=== PATIENT | male | born 1970 | race Caucasian/White ===

== ENCOUNTER 2016-11-08 09:41 | Emergency (ER) | payer OTHER ==
--- NOTE | 2016-11-08 10:18 | ED CLINICAL REPORT ---
Clinical Report - Physicians/Mid Levels [facility] [address] [place] [address] 11/08/2016 9:44 Patient: ASHLEY ABDI Time Seen: 09:57; initial patient contact. Arrived- By private vehicle. Historian- patient. HISTORY OF PRESENT ILLNESS Chief Complaint: SKIN RASH. This started about 2 months ago and is still present and worsening. It is described as itchy and burning. It has been located on the right and left abdomen (and groin). No cause has been identified. No recent medication or insect bite. Was not recently exposed to poison bc or poison oak. (Has attempted OTC jock itch Tx's w/out relief). Similar symptoms previously: None. Recent medical care: Not recently seen/assessed. REVIEW OF SYSTEMS No fever, chills or genital lesions. All systems otherwise negative, except as recorded above. PAST HISTORY ADD - Attention Deficit Disorder. Arthritis of the upper spine. Bipolar Disorder. Depression. Anxiety Reaction. ADDITIONAL SURGERIES: Hernia Repair. SOCIAL HISTORY Former smoker. Occasional alcohol use. No drug use. ADDITIONAL NOTES The nursing notes have been reviewed with agreement regarding the chief complaint, PMH and patient medications and allergies. PHYSICAL EXAM Vital Signs: 11/08/2016 10:00 BP: 110/73. HR: 89. RR: 18. O2 saturation: 100%. Temp: 98.0 F. Have been reviewed as normal. Appearance: Alert. Oriented X3. No acute distress. Skin: Rash present on the right and left abdomen (inguinal area). The rash is erythematous and maculopapular. Neuro: Oriented X 3. PROGRESS AND PROCEDURES Disposition: Discharged home in good condition. Condition: good. CLINICAL IMPRESSION Tinea cruris INSTRUCTIONS Your Current Medications: CONTINUE TAKING THE FOLLOWING MEDICATIONS: Adderall Oral : 30 mg 2x a day. LamoTRIgine Oral : 200mg daily. [place] Oral : 300mg 3x daily. Naproxen Oral. Prazosin HCl Oral : 2mg 2x a day. Pristiq Oral : 50mg 2x daily. SEROquel Oral : 200mg 2x a day. Prescription Medications: Nystatin Topical Cream: three times daily as needed for itching or rash until symptoms resolve. Dispense thirty (30) grams. No refills. Follow-up: Screening today revealed the patient's blood pressure to be in the normal range. Follow-up with: [facility], , , [address], , [place], [address] Follow up in about five if not better. Call for an appointment. (Electronically signed by Rustam Maxwell Dr. 11/08/2016 10:23)
--- NOTE | 2016-11-08 10:18 | ED CLINICAL REPORT ---
Clinical Report - Physicians/Mid Levels [facility] [address] [place] [address] 11/08/2016 9:44 Patient: ASHLEY ABDI Time Seen: 09:57; initial patient contact. Arrived- By private vehicle. Historian- patient. HISTORY OF PRESENT ILLNESS Chief Complaint: SKIN RASH. This started about 2 months ago and is still present and worsening. It is described as itchy and burning. It has been located on the right and left abdomen (and groin). No cause has been identified. No recent medication or insect bite. Was not recently exposed to poison bc or poison oak. (Has attempted OTC jock itch Tx's w/out relief). Similar symptoms previously: None. Recent medical care: Not recently seen/assessed. REVIEW OF SYSTEMS No fever, chills or genital lesions. All systems otherwise negative, except as recorded above. PAST HISTORY ADD - Attention Deficit Disorder. Arthritis of the upper spine. Bipolar Disorder. Depression. Anxiety Reaction. ADDITIONAL SURGERIES: Hernia Repair. SOCIAL HISTORY Former smoker. Occasional alcohol use. No drug use. ADDITIONAL NOTES The nursing notes have been reviewed with agreement regarding the chief complaint, PMH and patient medications and allergies. PHYSICAL EXAM Vital Signs: 11/08/2016 10:00 BP: 110/73. HR: 89. RR: 18. O2 saturation: 100%. Temp: 98.0 F. Have been reviewed as normal. Appearance: Alert. Oriented X3. No acute distress. Skin: Rash present on the right and left abdomen (inguinal area). The rash is erythematous and maculopapular. Neuro: Oriented X 3. PROGRESS AND PROCEDURES Disposition: Discharged home in good condition. Condition: good. CLINICAL IMPRESSION Tinea cruris INSTRUCTIONS Your Current Medications: CONTINUE TAKING THE FOLLOWING MEDICATIONS: Adderall Oral : 30 mg 2x a day. LamoTRIgine Oral : 200mg daily. [place] Oral : 300mg 3x daily. Naproxen Oral. Prazosin HCl Oral : 2mg 2x a day. Pristiq Oral : 50mg 2x daily. SEROquel Oral : 200mg 2x a day. Prescription Medications: Nystatin Topical Cream: three times daily as needed for itching or rash until symptoms resolve. Dispense thirty (30) grams. No refills. Follow-up: Screening today revealed the patient's blood pressure to be in the normal range. Follow-up with: [facility], , , [address], , [place], [address] Follow up in about five if not better. Call for an appointment. (Electronically signed by Rustam Maxwell Dr. 11/08/2016 10:23)
--- NOTE | 2016-11-08 10:18 | ED NURSING NOTES ---
Clinical Report - Nurses [facility] [address] [place] [address] 11/08/2016 9:44 Patient: ASHLEY ABDI TRIAGE Triage time 10:03 Nov 08 2016. Acuity: LEVEL 4. Chief Complaint: SKIN RASH. JANINE COMA SCORE: Janine Coma Scale: 15- eyes open spontaneously (4); best verbal response- oriented x 4 (5); best motor response- obeys commands (6). --10:06 Mary Alexander R.N. 10:00 11/08/16. BP: 110/73. HR: 89. RR: 18. O2 saturation: 100%. Temp: 98.0 F. Pain level now 410. --10:06 Mary Alexander R.N. Weight: 90.7 kg stated. Height/Length: 70 inches Per Patient. BMI: 28.7. --10:02 Mary Alexander R.N. Medications Adderall Oral 30 mg, 2x a day. LamoTRIgine Oral 200mg , daily. [place] Oral 300mg, 3x daily. Prazosin HCl Oral 2mg, 2x a day. Pristiq Oral 50mg, 2x daily. SEROquel Oral 200mg, 2x a day. --10:05 Mary Alexander R.N. Naproxen Oral. --10:05 Mary Alexander R.N. Allergies No Known Drug Allergy. --10:05 Mary Alexander R.N. History Arrived by private vehicle. Historian: patient. Reported as located on the perineum and genitalia. Onset. (two months ago but past two days the worst). It is described as itchy, burning and painful. No recent medication, food exposure or insect bite. He has had itching. No fever, muscle aches, headache, cough or difficulty breathing. No weakness. 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 (fungal creme). SOCIAL HX: Former smoker, end date 1996. Occasional alcohol use; consumes two beers. No drug use. No infectious disease exposure. SELF HARM ASSESSMENT: A self harm assessment was performed. The patient answered "no" to the question "Have you recently felt down, depressed, or hopeless?" and "Do you have thoughts of harming or killing yourself?". FALL RISK ASSESSMENT: Fall risk assessment completed. No fall risk identified. NUTRITIONAL RISK ASSESSMENT: The nutritional risk assessment revealed no deficiencies. FUNCTIONAL ASSESSMENT: Functional assessment: no impairments noted. LEARNING NEEDS ASSESSMENT: The learning needs assessment revealed no barriers. ABUSE ASSESSMENT: Abuse assessment: (yes) The patient was asked "Do you feel safe in your home?". --10:06 Mary Alexander R.N. PROBLEMS: ADD - Attention Deficit Disorder. Arthritis of the upper spine. Bipolar Disorder. Depression. Anxiety Reaction. --10:05 Mary Alexander R.N. ADDITIONAL SURGERIES: Hernia Repair. --10:05 Mary Alexander R.N. Interventions ID band on patient. --10:06 Mary Alexander R.N. PHYSICAL ASSESSMENT Ambulatory to room. ( Severe dental decay.). GENERAL / NEURO / PSYCH: Alert. The patient does not appear to be in acute distress. He appears restless. Oriented X 4. HEENT: Pupils equal, round and reactive to light. Mucous membranes are pink. RESPIRATORY: Respirations not labored. Breath sounds within normal limits. CVS: Capillary refill less than 2 seconds. Pulses within normal limits. GI / : ( last bm 11/07/16). SKIN: Skin rash present. --10:08 Mary Alexander R.N. NURSING PROGRESS NOTES The plan of care for this patient includes an assessment with efforts to address patient positioning and appropriate ambient lighting; impairment of the integumentary system. Pulse oximeter and NIBP monitor placed on patient. Patient gowned. Head of bed elevated (45). Reassurance given. Call light placed in reach. Side rails up x 1. Bed placed in lowest position. Brakes of bed on. --10:08 Mary Alexander R.N. DISPOSITION / DISCHARGE Departure time: 10:45 Nov 08 2016. Condition at departure: improved. No learning barriers present. Discharge instructions provided and reviewed with the patient. Reviewed warnings. Reviewed medication(s). Treatments reviewed. Reviewed referrals. Patient verbalized understanding. Written instructions provided in Urdu. The patient was discharged home. He left the Emergency Department ambulatory and via private vehicle. Patient driving. --10:53 Mary Alexander R.N. 10:00 11/08/16. BP: 110/73. HR: 89. RR: 18. O2 saturation: 100%. Temp: 98.0 F. Pain level now 4/10. --10:53 Mary Alexander R.N. Locked/Released at 11/09/2016 18:37 by Mary Alexander R.N.
--- NOTE | 2016-11-08 10:18 | ED NURSING NOTES ---
Clinical Report - Nurses [facility] [address] [place] [address] 11/08/2016 9:44 Patient: ASHLEY ABDI TRIAGE Triage time 10:03 Nov 08 2016. Acuity: LEVEL 4. Chief Complaint: SKIN RASH. JANINE COMA SCORE: Janine Coma Scale: 15- eyes open spontaneously (4); best verbal response- oriented x 4 (5); best motor response- obeys commands (6). --10:06 Mary Alexander R.N. 10:00 11/08/16. BP: 110/73. HR: 89. RR: 18. O2 saturation: 100%. Temp: 98.0 F. Pain level now 410. --10:06 Mary Alexander R.N. Weight: 90.7 kg stated. Height/Length: 70 inches Per Patient. BMI: 28.7. --10:02 Mary Alexander R.N. Medications Adderall Oral 30 mg, 2x a day. LamoTRIgine Oral 200mg , daily. [place] Oral 300mg, 3x daily. Prazosin HCl Oral 2mg, 2x a day. Pristiq Oral 50mg, 2x daily. SEROquel Oral 200mg, 2x a day. --10:05 Mary Alexander R.N. Naproxen Oral. --10:05 Mary Alexander R.N. Allergies No Known Drug Allergy. --10:05 Mary Alexander R.N. History Arrived by private vehicle. Historian: patient. Reported as located on the perineum and genitalia. Onset. (two months ago but past two days the worst). It is described as itchy, burning and painful. No recent medication, food exposure or insect bite. He has had itching. No fever, muscle aches, headache, cough or difficulty breathing. No weakness. 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 (fungal creme). SOCIAL HX: Former smoker, end date 1996. Occasional alcohol use; consumes two beers. No drug use. No infectious disease exposure. SELF HARM ASSESSMENT: A self harm assessment was performed. The patient answered "no" to the question "Have you recently felt down, depressed, or hopeless?" and "Do you have thoughts of harming or killing yourself?". FALL RISK ASSESSMENT: Fall risk assessment completed. No fall risk identified. NUTRITIONAL RISK ASSESSMENT: The nutritional risk assessment revealed no deficiencies. FUNCTIONAL ASSESSMENT: Functional assessment: no impairments noted. LEARNING NEEDS ASSESSMENT: The learning needs assessment revealed no barriers. ABUSE ASSESSMENT: Abuse assessment: (yes) The patient was asked "Do you feel safe in your home?". --10:06 Mary Alexander R.N. PROBLEMS: ADD - Attention Deficit Disorder. Arthritis of the upper spine. Bipolar Disorder. Depression. Anxiety Reaction. --10:05 Mary Alexander R.N. ADDITIONAL SURGERIES: Hernia Repair. --10:05 Mary Alexander R.N. Interventions ID band on patient. --10:06 Mary Alexander R.N. PHYSICAL ASSESSMENT Ambulatory to room. ( Severe dental decay.). GENERAL / NEURO / PSYCH: Alert. The patient does not appear to be in acute distress. He appears restless. Oriented X 4. HEENT: Pupils equal, round and reactive to light. Mucous membranes are pink. RESPIRATORY: Respirations not labored. Breath sounds within normal limits. CVS: Capillary refill less than 2 seconds. Pulses within normal limits. GI / : ( last bm 11/07/16). SKIN: Skin rash present. --10:08 Mary Alexander R.N. NURSING PROGRESS NOTES The plan of care for this patient includes an assessment with efforts to address patient positioning and appropriate ambient lighting; impairment of the integumentary system. Pulse oximeter and NIBP monitor placed on patient. Patient gowned. Head of bed elevated (45). Reassurance given. Call light placed in reach. Side rails up x 1. Bed placed in lowest position. Brakes of bed on. --10:08 Mary Alexander R.N. DISPOSITION / DISCHARGE Departure time: 10:45 Nov 08 2016. Condition at departure: improved. No learning barriers present. Discharge instructions provided and reviewed with the patient. Reviewed warnings. Reviewed medication(s). Treatments reviewed. Reviewed referrals. Patient verbalized understanding. Written instructions provided in Bel[place]ian. The patient was discharged home. He left the Emergency Department ambulatory and via private vehicle. Patient driving. --10:53 Mary Alexander R.N. 10:00 11/08/16. BP: 110/73. HR: 89. RR: 18. O2 saturation: 100%. Temp: 98.0 F. Pain level now 4/10. --10:53 Mary Alexander R.N. Locked/Released at 11/09/2016 18:37 by Mary Alexander R.N.
--- NOTE | 2016-11-09 18:37 | ED MAR SUMMARY ---
..... Medication Administration Record [facility] [address] [place], [place] [id number] Patient: ASHLEY ABDI Visit ID: [id number] 46y, M Weight: 90.7 kg Height/Length: 70 in BMI: 28.7 ALLERGIES: No Known Drug Allergy
--- NOTE | 2016-11-09 18:37 | ED DISCHARGE INSTRUCTIONS ---
Patient: ASHLEY ABDI General Instructions [facility] VisitID: [id number] [address] [place] [place] [address] 46y, M Registration Date/Time: 11/08/2016 Tinea cruris INSTRUCTIONS Your Current Medications: CONTINUE TAKING THE FOLLOWING MEDICATIONS: Adderall Oral : 30 mg 2x a day. LamoTRIgine Oral : 200mg daily. [place] Oral : 300mg 3x daily. Naproxen Oral. Prazosin HCl Oral : 2mg 2x a day. Pristiq Oral : 50mg 2x daily. SEROquel Oral : 200mg 2x a day. Prescription Medications: Nystatin Topical Cream: three times daily as needed for itching or rash until symptoms resolve. Dispense thirty (30) grams. No refills. Follow-up: Screening today revealed the patient's blood pressure to be in the normal range. Follow-up with: [facility], , , [address], , [place], [address] Follow up in about five if not better. Call for an appointment. ADDITIONAL INFORMATION Tinea Cruris(General) Tinea crurisis a red, itchy rash caused by a fungal infection. It occurs in skin folds where it is warm and moist. This is often the groin area (jock itch) or under the breasts. It often starts as a small patch that grows larger. This infection is treated with skin creams or oral medication. Home Care: If you were prescribed a cream, it should be applied exactly as directed. Some antifungal creams are available without a prescription (Lotrimin, Tinactin). It may take a week before the fungus starts to go away and it can take about2 to3 weeks to completely clear. To prevent recurrence, it is important to continue the medicine until the rash is all gone. Wash the area at least once a day with soap and water. Pat dry and apply medicine. If the rash is in the groin, change underwear daily. If the rash is under your breast, wear a bra to prevent [id number] contact between the breast and the skin of the chest. Once the rash is gone, keep the area clean and dry to prevent reinfection. If recurrence is a problem, use a medicated antifungal powder daily (such as Zeasorb-AF, available [id number]). Follow Up With Your Doctor As Advised By Our Staff If The Rash Is Not Starting To Improve After10 Days Of Treatment Or If The Rash Continues To Spread. Get Prompt Medical Attention If Any Of The Following Occur: Increasing pain in the area of the rash Redness that spreads around the rash Fluid draining from the rash Fever of 100.4F (38C) or higher, or as directed by your healthcare provider Nystatin, Triamcinolone Acetonide Topical ointment What is this medicine? NYSTATIN; TRIAMCINOLONE (jose STAT in; trye am SIN oh lone) is a combination of an antifungal medicine and a steroid. It is used to treat certain kinds of fungal or yeast infections of the skin. How should I use this medicine? This medicine is for external use only. Do not take by mouth. Follow the directions on the prescription label. Wash your hands before and after use. If treating hand or nail infections, wash hands before use only. Apply a thin layer of this medicine to the affected area and rub in gently. Do not use on healthy skin or over large areas of skin. Do not get this medicine in your eyes. If you do, rinse out with plenty of cool tap water. When applying to the groin area, apply a limited amount and do not use for longer than 2 weeks unless directed to by your doctor or health memory care director. Do not cover or wrap the treated area with an airtight bandage (such as a plastic bandage). Use the full course of treatment prescribed, even if you think the infection is getting better. Use at regular intervals. Do not use your medicine more often than directed. Do not use this medicine for any condition other than the one for which it was prescribed. Talk to your sephora operations consultant regarding the use of this medicine in children. While this drug may be prescribed for selected conditions, precautions do apply. Children being treated in the diaper area should not wear tight-fitting diapers or plastic pants. Elderly patients are more likely to have damaged skin through aging, and this may increase side effects. This medicine should only be used for brief periods and infrequently in older patients. What side effects may I notice from receiving this medicine? Side effects that you should report to your doctor or health memory care director as soon as possible: burning or itching of the skin dark red spots on the skin loss of feeling on skin painful, red, pus-filled blisters in hair follicles skin infection thinning of the skin or sunburn: more likely if applied to the face Side effects that usually do not require medical attention (report to your doctor or health memory care director if they continue or are bothersome): dry or peeling skin skin irritation What may interact with this medicine? Interactions are not expected. Do not use any other skin products on the affected area without telling your doctor or health memory care director. What if I miss a dose? If you miss a dose, use it as soon as you can. If it is almost time for your next dose, use only that dose. Do not use double or extra doses. Where should I keep my medicine? Keep out of the reach of children. Store at room temperature between 15 and 30 degrees C (59 and 86 degrees F). Do not freeze. Throw away any unused medicine after the expiration date. What should I tell my health care provider before I take this medicine? They need to know if you have any of these conditions: large areas of burned or damaged skin skin wasting or thinning peripheral vascular disease or poor circulation an unusual or allergic reaction to nystatin, triamcinolone, other corticosteroids, other medicines, foods, dyes, or preservatives or trying to get breast-feeding What should I watch for while using this medicine? Tell your doctor or health memory care director if your symptoms do not start to get better within 1 week when treating the groin area or within 2 weeks when treating the feet. . Tell your doctor or health memory care director if you develop sores or blisters that do not heal properly. If your skin infection returns after stopping this medicine, contact your doctor or health memory care director. If you are using this medicine to treat an infection in the groin area, do not wear underwear that is tight-fitting or made from synthetic fibers such as ubaldo or nylon. Instead, wear loose-fitting, cotton underwear. Also dry the area completely after bathing. You have been given the following additional information: Tinea Cruris, General Nystatin, Triamcinolone Acetonide Topical ointment (Electronically signed by Rustam Maxwell Dr. 11/08/2016 10:23)
--- NOTE | 2016-11-09 18:37 | ED MED RECONCILIATION SUMMARY ---
Patient: ASHLEY ABDI Medication Reconciliation Report [facility] VisitID: [id number] [address] [place] [address] 46y, M Registration Date/Time: 11/08/2016 Weight: 90.7 kg Height/Length: 70 in. BMI: 28.7 ALLERGIES: No Known Drug Allergy The patient's Home Medications are listed below: CONTINUE TAKING THE FOLLOWING MEDICATIONS: Adderall Oral 30 mg, 2x a day LamoTRIgine Oral 200mg , daily [place] Oral 300mg, 3x daily Naproxen Oral Prazosin HCl Oral 2mg, 2x a day Pristiq Oral 50mg, 2x daily SEROquel Oral 200mg, 2x a day The source(s) of the original Home Medication information: Not obtained. The following Medications were given to the patient in the Emergency Department: None. The following Medications were prescribed to the patient: Nystatin Topical Cream: three times daily as needed for itching or rash until symptoms resolve. Dispense thirty (30) grams. No refills. -- Rustam Maxwell Dr.
--- NOTE | 2016-11-09 18:37 | ED MED RECONCILIATION SUMMARY ---
Patient: ASHLEY ABDI Medication Reconciliation Report [facility] VisitID: [id number] [address] [place] [address] 46y, M Registration Date/Time: 11/08/2016 Weight: 90.7 kg Height/Length: 70 in. BMI: 28.7 ALLERGIES: No Known Drug Allergy The patient's Home Medications are listed below: CONTINUE TAKING THE FOLLOWING MEDICATIONS: Adderall Oral 30 mg, 2x a day LamoTRIgine Oral 200mg , daily [place] Oral 300mg, 3x daily Naproxen Oral Prazosin HCl Oral 2mg, 2x a day Pristiq Oral 50mg, 2x daily SEROquel Oral 200mg, 2x a day The source(s) of the original Home Medication information: Not obtained. The following Medications were given to the patient in the Emergency Department: None. The following Medications were prescribed to the patient: Nystatin Topical Cream: three times daily as needed for itching or rash until symptoms resolve. Dispense thirty (30) grams. No refills. -- Rustam Maxwell Dr.
--- NOTE | 2016-11-09 18:37 | ED MAR SUMMARY ---
..... Medication Administration Record [facility] [address] [place], [place] [id number] Patient: ASHLEY ABDI Visit ID: [id number] 46y, M Weight: 90.7 kg Height/Length: 70 in BMI: 28.7 ALLERGIES: No Known Drug Allergy
--- NOTE | 2016-11-09 18:37 | ED DISCHARGE INSTRUCTIONS ---
Patient: ASHLEY ABDI General Instructions [facility] VisitID: [id number] [address] [place] [address] 46y, M Registration Date/Time: 11/08/2016 Tinea cruris INSTRUCTIONS Your Current Medications: CONTINUE TAKING THE FOLLOWING MEDICATIONS: Adderall Oral : 30 mg 2x a day. LamoTRIgine Oral : 200mg daily. Paradise Oral : 300mg 3x daily. Naproxen Oral. Prazosin HCl Oral : 2mg 2x a day. Pristiq Oral : 50mg 2x daily. SEROquel Oral : 200mg 2x a day. Prescription Medications: Nystatin Topical Cream: three times daily as needed for itching or rash until symptoms resolve. Dispense thirty (30) grams. No refills. Follow-up: Screening today revealed the patient's blood pressure to be in the normal range. Follow-up with: [facility], , , [address], , [place], [id number] Follow up in about five if not better. Call for an appointment. ADDITIONAL INFORMATION Tinea Cruris(General) Tinea crurisis a red, itchy rash caused by a fungal infection. It occurs in skin folds where it is warm and moist. This is often the groin area (jock itch) or under the breasts. It often starts as a small patch that grows larger. This infection is treated with skin creams or oral medication. Home Care: If you were prescribed a cream, it should be applied exactly as directed. Some antifungal creams are available without a prescription (Lotrimin, Tinactin). It may take a week before the fungus starts to go away and it can take about2 to3 weeks to completely clear. To prevent recurrence, it is important to continue the medicine until the rash is all gone. Wash the area at least once a day with soap and water. Pat dry and apply medicine. If the rash is in the groin, change underwear daily. If the rash is under your breast, wear a bra to prevent [id number] contact between the breast and the skin of the chest. Once the rash is gone, keep the area clean and dry to prevent reinfection. If recurrence is a problem, use a medicated antifungal powder daily (such as Zeasorb-AF, available [id number]). Follow Up With Your Doctor As Advised By Our Staff If The Rash Is Not Starting To Improve After10 Days Of Treatment Or If The Rash Continues To Spread. Get Prompt Medical Attention If Any Of The Following Occur: Increasing pain in the area of the rash Redness that spreads around the rash Fluid draining from the rash Fever of 100.4F (38C) or higher, or as directed by your healthcare provider Nystatin, Triamcinolone Acetonide Topical ointment What is this medicine? NYSTATIN; TRIAMCINOLONE (jose STAT in; trye am SIN [place]) is a combination of an antifungal medicine and a steroid. It is used to treat certain kinds of fungal or yeast infections of the skin. How should I use this medicine? This medicine is for external use only. Do not take by mouth. Follow the directions on the prescription label. Wash your hands before and after use. If treating hand or nail infections, wash hands before use only. Apply a thin layer of this medicine to the affected area and rub in gently. Do not use on healthy skin or over large areas of skin. Do not get this medicine in your eyes. If you do, rinse out with plenty of cool tap water. When applying to the groin area, apply a limited amount and do not use for longer than 2 weeks unless directed to by your doctor or health day care aide. Do not cover or wrap the treated area with an airtight bandage (such as a plastic bandage). Use the full course of treatment prescribed, even if you think the infection is getting better. Use at regular intervals. Do not use your medicine more often than directed. Do not use this medicine for any condition other than the one for which it was prescribed. Talk to your scoop driver regarding the use of this medicine in children. While this drug may be prescribed for selected conditions, precautions do apply. Children being treated in the diaper area should not wear tight-fitting diapers or plastic pants. Elderly patients are more likely to have damaged skin through aging, and this may increase side effects. This medicine should only be used for brief periods and infrequently in older patients. What side effects may I notice from receiving this medicine? Side effects that you should report to your doctor or health day care aide as soon as possible: burning or itching of the skin dark red spots on the skin loss of feeling on skin painful, red, pus-filled blisters in hair follicles skin infection thinning of the skin or sunburn: more likely if applied to the face Side effects that usually do not require medical attention (report to your doctor or health day care aide if they continue or are bothersome): dry or peeling skin skin irritation What may interact with this medicine? Interactions are not expected. Do not use any other skin products on the affected area without telling your doctor or health day care aide. What if I miss a dose? If you miss a dose, use it as soon as you can. If it is almost time for your next dose, use only that dose. Do not use double or extra doses. Where should I keep my medicine? Keep out of the reach of children. Store at room temperature between 15 and 30 degrees C (59 and 86 degrees F). Do not freeze. Throw away any unused medicine after the expiration date. What should I tell my health care provider before I take this medicine? They need to know if you have any of these conditions: large areas of burned or damaged skin skin wasting or thinning peripheral vascular disease or poor circulation an unusual or allergic reaction to nystatin, triamcinolone, other corticosteroids, other medicines, foods, dyes, or preservatives or trying to get breast-feeding What should I watch for while using this medicine? Tell your doctor or health day care aide if your symptoms do not start to get better within 1 week when treating the groin area or within 2 weeks when treating the feet. . Tell your doctor or health day care aide if you develop sores or blisters that do not heal properly. If your skin infection returns after stopping this medicine, contact your doctor or health day care aide. If you are using this medicine to treat an infection in the groin area, do not wear underwear that is tight-fitting or made from synthetic fibers such as ubaldo or nylon. Instead, wear loose-fitting, cotton underwear. Also dry the area completely after bathing. You have been given the following additional information: Tinea Cruris, General Nystatin, Triamcinolone Acetonide Topical ointment (Electronically signed by Rustam Maxwell Dr. 11/08/2016 10:23)
== END 2016-11-08 10:50 | disposition home or self-care (01) ==
LOC: ED SRH 09:41
DX: B35.6 Tinea cruris (principal)